=== PATIENT | female | born 1965 | race Two or more races ===

== ENCOUNTER → 2020-04-30 | Outpatient (CLI) | payer OTHER ==
[~2020-04-30] MED LIST: BENZ-17 PO; DOCU-180 PO; EMPA10TA PO; ESOM40CA PO; LINA5TAB PO; METF10007 PO; [UNRECOGNIZED DRUG - OTHER] PO
[2020-04-30 11:43] LABS: MICROSCOPIC AUTO
[2020-04-30 11:45] LABS: HCT (SEDRATE) 43.5 % (34.6-47.8)
[2020-04-30 11:46] LABS: BASOPHILS % (AUTO) 1 % (0-1); EOSINOPHILS % (AUTO) 2 % (1-7); LYMPHOCYTES % (AUTO) 31 % (22-44); MEAN CORPUSCULAR HEMOGLOBIN 30.1 pg (27.0-34.8); MEAN CORPUSCULAR HGB CONC 34.6 g/dL (32.4-35.8); MONOCYTES % (AUTO) 4 % (2-9); NEUTROPHILS % (AUTO) 62 % (42-75); PLATELET COUNT 293 x10^3/uL (130-400); RED BLOOD COUNT 5.01 x10^6/uL (3.82-5.3); RED CELL DISTRIBUTION WIDTH 14.2 % (9.6-15.2)
[2020-04-30 11:51] LABS: ALANINE AMINOTRANSFERASE 28 U/L (12-78); ALBUMIN 3.6 g/dL (3.4-5.0); ANION GAP 6 mmol/L (5-15); CHLORIDE 102 mmol/L (98-107); CREATININE 0.77 mg/dL (0.55-1.02)
[2020-04-30 11:53] LABS: PARTIAL THROMBOPLASTIN TIME 25 Seconds (25-31); PROTHROMBIN TIME 9.9 Seconds (9.6-11.5)
[2020-04-30 11:54] LABS: ALKALINE PHOSPHATASE 116 U/L (45-117); BILIRUBIN,TOTAL 0.5 mg/dL (0.2-1.0); TOTAL PROTEIN 7.7 g/dL (6.4-8.2)
[2020-04-30 11:56] LABS: MD NO
[2020-04-30 11:58] LABS: INTERNATIONAL NORMALIZED RATIO < 0.93 (0.93-1.1)
== END | disposition home or self-care (01) ==
LOC: STAR 10:23
PROVIDERS: ATTEND Orthopaedic Surgery Orthopaedic Surgery of the Spine
DX: Z01.812 Encounter for preprocedural laboratory examination (principal); Z20.822 Contact with and (suspected) exposure to COVID-19; M51.16 Intervertebral disc disorders with radiculopathy, lumbar region; J98.4 Other disorders of lung; I25.2 Old myocardial infarction
CPT/HCPCS: 71046; 80053; 80074; 81001; 85025; 85610; 85651; 85730; 87635; 87806; 93005; G0475

== ENCOUNTER → 2020-05-02 | Outpatient (CLI) | payer OTHER | END | disposition home or self-care (01) | LOC: STAR 09:08 | PROVIDERS: ATTEND Orthopaedic Surgery Orthopaedic Surgery of the Spine | DX: Z01.818 Encounter for other preprocedural examination (principal); M54.16 Radiculopathy, lumbar region | CPT/HCPCS: 36415; 82947 ==

== ENCOUNTER 2020-05-06 06:58 | Day surgery (SDC) | payer OTHER, SELFPAY ==
[~2020-05-06] VITALS: Ht 160 cm; Wt 66.4 kg
[~2020-05-06 06:58] MED LIST changes: +BACITRACIN 50,000 UNIT ONE; +BUPIVACAINE/PF 0.5% ONE; +EPINEPHRINE 1 MG/ML, 1ML ONE; +LIDOCAINE/PF 1%, 30ML ONE; +THROMBIN 5,000 UNIT VIAL TP ONE; +VANCOMYCIN 1,000 MG ONE
[2020-05-06] MEDS ORDERED: MIDAZOLAM 1 MG/ML, 2ML ONE (07:04)
[2020-05-06] MEDS ORDERED: FENTANYL PF 250 MCG/5ML ONE (07:04)
[2020-05-06] MEDS ORDERED: TYLENOL PO (07:20)
[2020-05-06] MEDS ORDERED: LACTATED RINGERS 1,000 ML IV SCH (07:30)
[2020-05-06] MEDS ORDERED: CHLORHEXIDINE 15 ML UDC MM ONE (07:30)
[2020-05-06] MEDS ORDERED: albuterol INH (07:42)
[2020-05-06] MEDS ORDERED: GENTAMICIN 80 MG/2 ML ONE (07:52)
[2020-05-06] MEDS ORDERED: ROCURONIUM 10 MG/ML,10ML ONE (07:52)
[2020-05-06] MEDS ORDERED: PROPOFOL 10 MG/ML, 50ML ONE (07:52)
[2020-05-06] MEDS ORDERED: NEOSTIGMINE 1 MG/ML, 10ML ONE (07:52)
[2020-05-06] MEDS ORDERED: DEXAMETHASONE 4 MG/ML, 1ML ONE (07:52)
[2020-05-06] MEDS ORDERED: PROPOFOL 10 MG/ML, 20ML ONE (07:52)
[2020-05-06] MEDS ORDERED: PHENYLEPHRINE 10 MG/ML ONE (07:52)
[2020-05-06] MEDS ORDERED: ONDANSETRON 2MG/ML, 2ML ONE (07:52)
[2020-05-06] MEDS ORDERED: CEFAZOLIN 1,000 MG ONE (07:52)
[2020-05-06] MEDS ORDERED: GLYCOPYRROLATE 0.2MG/1ML, 5ML ONE (07:52)
[2020-05-06] MEDS ORDERED: KETOROLAC 30 MG/1 ML IVPush PRN (08:30)
[2020-05-06] MEDS ORDERED: ONDANSETRON 2MG/ML, 2ML IVPush PRN (08:30)
[2020-05-06] MEDS ORDERED: FENTANYL PF 100 MCG/2ML IV PRN (08:30)
[2020-05-06] MEDS ORDERED: METHOCARBAMOL 1,000 MG in DEXTROSE 5% 100 ML IV PRN (08:30)
[2020-05-06] MEDS ORDERED: OXYcodone 5 MG/5 ML ORAL.SOL UDC PO PRN (08:30)
[2020-05-06] MEDS ORDERED: LABETALOL 5MG/ML, 20ML IV PRN (08:30)
[2020-05-06] MEDS ORDERED: PROMETHAZINE 25 MG/ML, 1ML IVPush PRN (08:30)
[2020-05-06] MEDS ORDERED: EPHEDRINE 50 MG/ML, 1ML IVPush PRN (08:30)
[2020-05-06] MEDS ORDERED: DIPHENHYDRAMINE 50 MG/ML, 1ML IVPush PRN (08:30)
[2020-05-06] MEDS ORDERED: LORazepam 2 MG/ML, 1ML IVPush PRN (08:30)
[2020-05-06] MEDS ORDERED: HYDROmorphone 1 MG/ML, 1ML INJ IVPush PRN (08:30)
[2020-05-06] MEDS ORDERED: METOPROLOL 1 MG/ML, 5ML IV PRN (08:30)
[2020-05-06] MEDS ORDERED: hydrALAzine 20 MG/ML, 1ML IV PRN (08:30)
[2020-05-06] MEDS ORDERED: ALBUTEROL SULFATE 2.5 MG/3 ML NPPB PRN (08:30)
[2020-05-06] MEDS ORDERED: HALOPERIDOL 5 MG/ML IV PRN (08:30)
[2020-05-06] MEDS ORDERED: METOCLOPRAMIDE 5 MG/ML, 2ML IVPush PRN (08:30)
== END 2020-05-06 12:55 | disposition home or self-care (01) ==
LOC: OUT 06:58
PROVIDERS: ATTEND Orthopaedic Surgery Orthopaedic Surgery of the Spine
DX: M43.16 Spondylolisthesis, lumbar region (principal); M48.061 Spinal stenosis, lumbar region without neurogenic claudication; M71.38 Other bursal cyst, other site; M54.16 Radiculopathy, lumbar region; Z79.899 Other long term (current) drug therapy
CPT/HCPCS: 63047; 72100; 82962; 95938; 95941; C1751; J0171; J0690; J1100; J1580; J2250; J2370; J2405; J2704; J2710; J2800; J3010; J7120; J3370